=== PATIENT | female | born 1965 | race Caucasian/White ===

== ENCOUNTER 2017-03-04 17:28 | Day surgery (SDC) | payer OTHER ==
--- NOTE | 2017-03-04 18:05 | PDOC ---
Rapid Medical Evaluation Chief Complaint: Nausea/Vomiting Time Seen by Provider: 03/04/17 17:40 Medical Evaluation: Allergies Allergy/AdvReac Type Severity Reaction Status Date / Time No Known Allergies Allergy Verified 03/04/17 18:04 03/04/17 18:04 I have performed a brief in-person evaluation of this patient. The patient presents with a chief complaint of: n/v/d w/ abd pain x 2 days. No sig hx Pertinent physical exam findings:Stable w/ +ttp diffusely to abd I have ordered the following:labs The patient will proceed to the ED for further evaluation. 03/04/17 18:05
[2017-03-04 18:11] VITALS: BMI 46.5
[2017-03-04 19:04] LABS: BASO % 0.6 % (0-2.0); EOS % 3.3 % (0-4.5); HEMATOCRIT 42.7 % (32.4-45.2); HEMOGLOBIN 14.2 GM/dL (10.7-15.3); LYMPH % 36.3 % (8-40); MCH 28.4 pg (25.7-33.7); MCHC 33.2 g/dl (32.0-36.0); MEAN CELL VOLUME 85.5 fl (80-96); MEAN PLT VOLUME 8.7 fl (7.5-11.1); MONO % 4.9 % (3.8-10.2); NEUT % 54.9 % (42.8-82.8); PLATELET COUNT 232 K/MM3 (134-434); RBC 4.99 M/mm3 (3.60-5.2); RDW 13.8 % (11.6-15.6); WHITE BLOOD COUNT 10.2 K/mm3 (4.0-10.0)
--- NOTE | 2017-03-04 19:30 | PDOC ---
History of Present Illness - General Chief Complaint: Nausea/Vomiting Stated Complaint: VOMITING Time Seen by Provider: 03/04/17 17:40 History Source: Patient Exam Limitations: No Limitations - History of Present Illness Travel History: No Initial Comments: 03/04/17 19:30 51-year-old female with no medical history presents to the emergency department complaining of RLQ abdominal pains times approximately 6 hours with nausea and 2 bouts of vomiting/nonbloody, nonbilious. Patient denies fever, chills, neck pain/stiffness, back pains, chest pain, shortness of breath, flank pains, urinary symptoms: Frequency/urgency/hesitancy, hematuria. Pain is exacerbated on touch and alleviated at rest. Patient denies any other complaints. npo since 3pm Past History - Past Medical History Allergies/Adverse Reactions: Allergies Allergy/AdvReac Type Severity Reaction Status Date / Time No Known Allergies Allergy Verified 03/04/17 18:05 Home Medications: Ambulatory Orders Cholecalciferol (Vitamin D3) [Vitamin D3 -] 0 unit PO DAILY 03/04/17 Desmopressin Acetate [Ddavp -] 0 mg PO BID 03/04/17 Levothyroxine [Synthroid -] 0 mcg PO DAILY 03/04/17 Prednisone 5 mg PO DAILY 03/04/17 CVA: No COPD: No DVT: No - Immunization History Immunization Up to Date: Yes - Suicide/Smoking/Psychosocial Hx Smoking History: Never smoked Information on smoking cessation initiated: No Hx Alcohol Use: No Drug/Substance Use Hx: No Substance Use Type: None Review of Systems - Review of Systems Able to Perform ROS?: Yes Comments:: 03/04/17 22:06 CONSTITUTIONAL: Absent: fever, chills, diaphoresis, generalized weakness, malaise, loss of appetite HEENT: Absent: rhinorrhea, nasal congestion, throat pain, throat swelling, difficulty swallowing, mouth swelling, ear pain, eye pain, visual Changes CARDIOVASCULAR: Absent: chest pain, loss of consciousness, palpitations, irregular heart rate, peripheral edema RESPIRATORY: Absent: cough, shortness of breath, dyspnea with exertion, orthopnea, wheezing, stridor, hemoptysis GASTROINTESTINAL: +RLQ/RUQ pain on palp, n/vx2 Absent:abdominal distension, diarrhea, constipation, melena, hematochezia GENITOURINARY: Absent: dysuria, frequency, urgency, hesitancy, hematuria, flank pain, genital pain MUSCULOSKELETAL: Absent: myalgia, arthralgia, joint swelling SKIN: Absent: rash, itching, pallor Is the patient limited Angolan proficient: No *Physical Exam - Vital Signs Last Vital Signs Temp Pulse Resp BP Pulse Ox 98.3 F 101 H 17 98/62 100 03/04/17 18:05 03/04/17 18:05 03/04/17 18:05 03/04/17 18:05 03/04/17 18:05 - Physical Exam Comments: 03/04/17 22:07 GENERAL: Well developed, well nourished. Awake and alert. No acute distress. HEENT: Normocephalic, atraumatic. PERRLA, EOMI. No conjunctival pallor. Sclera are non- icteric. Moist mucous membranes. Oropharynx is clear. NECK: Supple. Full ROM. No JVD. Carotid pulses 2+ and symmetric, without bruits. No thyromegaly. No lymphadenopathy. CARDIOVASCULAR: Regular rate and rhythm. No murmurs, rubs, or gallops. Distal pulses are 2+ and symmetric. PULMONARY: No evidence of respiratory distress. Lungs clear to auscultation bilaterally. No wheezing, rales or rhonchi. ABDOMINAL: RLQ pain on palp +Rovsings/Mcburney's Soft. Non-distended. No rebound or guarding. No organomegaly. Normoactive bowel sounds. MUSCULOSKELETAL Normal range of motion at all joints. No bony deformities or tenderness. No CVA tenderness. EXTREMITIES: No cyanosis. No clubbing. No edema. No calf tenderness. SKIN: Warm and dry. Normal capillary refill. No rashes. No jaundice. NEUROLOGICAL: Alert, awake, appropriate. Cranial nerves 2-12 intact. No deficits to light touch and temperature in face, upper extremities and lower extremities. No motor deficits in the in face, upper extremities and lower extremities. Normoreflexic in the upper and lower extremities. Normal speech. Toes are down- going bilaterally. Gait is normal without ataxia. ED Treatment Course - LABORATORY CBC & Chemistry Diagram: 03/04/17 18:05 03/04/17 18:05 - ADDITIONAL ORDERS Additional order review: 03/04/17 18:05 RBC 4.99 MCV 85.5 MCHC 33.2 RDW 13.8 MPV 8.7 Neutrophils % 54.9 Lymphocytes % 36.3 Monocytes % 4.9 Eosinophils % 3.3 Basophils % 0.6 - RADIOLOGY Radiology Studies Ordered: Category Date Time Status ABDOMEN & PELVIS CT WITH CONTR [CT] Stat CT Scan 03/04/17 19:29 Ordered Progress Note - Progress Note Progress Note: CT abd/pelvis po/iv contrast: 1930hrs: Started Po Contrast 0050hrs: Spoke to radiologist: +AP 0051hrs: Dr. Sommers/hospitalist notified while in ER. Will [employer] for records *DC/Admit/Observation/Transfer Diagnosis at time of Disposition: Appendicitis Qualifiers: Appendicitis type: acute appendicitis Acute appendicitis type: unspecified acute appendicitis type Qualified Code(s): K35.80 - Unspecified acute appendicitis - Discharge Dispostion Disposition: HOME Condition at time of disposition: Stable Admit: Yes - Referrals - Patient Instructions - Post Discharge Activity
--- NOTE | 2017-03-04 19:43 | PDOC ---
*Physical Exam - Vital Signs Last Vital Signs Temp Pulse Resp BP Pulse Ox 98.3 F 101 H 17 98/62 100 03/04/17 18:05 03/04/17 18:05 03/04/17 18:05 03/04/17 18:05 03/04/17 18:05 ED Treatment Course - LABORATORY CBC & Chemistry Diagram: 03/05/17 06:24 03/04/17 18:05 - ADDITIONAL ORDERS Additional order review: 03/04/17 18:05 RBC 4.99 MCV 85.5 MCHC 33.2 RDW 13.8 MPV 8.7 Neutrophils % 54.9 Lymphocytes % 36.3 Monocytes % 4.9 Eosinophils % 3.3 Basophils % 0.6 Medical Decision Making - Medical Decision Making 03/04/17 19:43 agree with care from HELIO Naranjo *DC/Admit/Observation/Transfer Diagnosis at time of Disposition: Appendicitis - Discharge Dispostion Disposition: HOME - Referrals - Patient Instructions - Post Discharge Activity
[2017-03-04 19:50] LABS: ALBUMIN 3.3 g/dl (3.4-5.0); ANION GAP 13 (8-16); BLOOD UREA NITROGEN 13 mg/dL (7-18); CALCIUM 8.5 mg/dL (8.5-10.1); CHLORIDE 103 mmol/L (98-107); CO2 23 mmol/L (21-32); GLUCOSE,RANDOM 93 mg/dL (74-106); LIPASE 110 U/L (73-393); POTASSIUM 3.4 mmol/L (3.5-5.1); SGOT/AST 33 U/L (15-37); SGPT/ALT 47 U/L (12-78); SODIUM 139 mmol/L (136-145)
[2017-03-04 19:51] LABS: ALK PHOS 106 U/L (45-117); TOT PROT 7.2 g/dl (6.4-8.2)
[2017-03-04 20:08] LABS: URINE APPEARANCE SLCLOUDY; URINE BILIRUBIN NEGATIVE (NEGATIVE); URINE BLOOD 2+ (NEGATIVE); URINE COLOR YELLOW; URINE GLUCOSE (UA) NEGATIVE (NEGATIVE); URINE KETONE TRACE (NEGATIVE); URINE NITRITE NEGATIVE (NEGATIVE); URINE PROTEIN NEGATIVE (NEGATIVE); URINE UROBILINOGEN NEGATIVE mg/dL (0.2-1.0)
[2017-03-04 21:45] LABS: URINE LEUK ESTERASE 2+ (NEGATIVE)
[2017-03-04 22:04] LABS: EPI CELLS RARE /HPF (FEW); URINE MUCUS RARE
[2017-03-05] MEDS ORDERED: PIPERACILLIN/TAZOB 4.5 GM/100 ML PRE-DOCKED IVPB ONE (00:53)
[2017-03-05] MEDS ORDERED: POTASSIUM CHLORIDE TABS 20 MEQ TABLET.ER (FP) PO ONE ×2 (00:55→01:14)
--- NOTE | 2017-03-05 01:12 | PN ---
Teaching Attending Note Name of Resident: Angel Luis Haynes ATTENDING PHYSICIAN STATEMENT I saw and evaluated the patient. I reviewed the resident's note and discussed the case with the resident. I agree with the resident's findings and plan as documented. 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 Pt. States she doesnt remember her meds/doses, but does know she's on some horomone replacement. No Chest pain or pressure. Notes vomiting has resolved. No fevers or chills. OBJECTIVE: Physical: VS: Vital Signs Period Temp Pulse Resp BP Sys/Antoine Pulse Ox Last 24 Hr 98.3 F 101-101 16-17 98-103/62-68 98-100 GEN: NAD, Resting in bed, Able to speak full sentences HEENT: NCAT, PERRL, Throat without erythema or exudates CARD: RRR S1, S2 RESP: CTAB ABD: BSx4, TTP RLQ EXT: - C/C/E CBCD WBC 10.2 K/mm3 (4.0-10.0) H 03/04/17 18:05 RBC 4.99 M/mm3 (3.60-5.2) 03/04/17 18:05 Hgb 14.2 GM/dL (10.7-15.3) 03/04/17 18:05 Hct 42.7 % (32.4-45.2) 03/04/17 18:05 MCV 85.5 fl (80-96) 03/04/17 18:05 MCHC 33.2 g/dl (32.0-36.0) 03/04/17 18:05 RDW 13.8 % (11.6-15.6) 03/04/17 18:05 Plt Count 232 K/MM3 (134-434) 03/04/17 18:05 MPV 8.7 fl (7.5-11.1) 03/04/17 18:05 CMP Sodium 139 mmol/L (136-145) 03/04/17 18:05 Potassium 3.4 mmol/L (3.5-5.1) L 03/04/17 18:05 Chloride 103 mmol/L (98-107) 03/04/17 18:05 Carbon Dioxide 23 mmol/L (21-32) 03/04/17 18:05 Anion Gap 13 (8-16) 03/04/17 18:05 BUN 13 mg/dL (7-18) 03/04/17 18:05 Creatinine 1.0 mg/dL (0.55-1.02) 03/04/17 18:05 Creat Clearance w eGFR 58.69 (>60) 03/04/17 18:05 Random Glucose 93 mg/dL (74-106) 03/04/17 18:05 Calcium 8.5 mg/dL (8.5-10.1) 03/04/17 18:05 Total Bilirubin 1.0 mg/dL (0.2-1.0) 03/04/17 18:05 AST 33 U/L (15-37) 03/04/17 18:05 ALT 47 U/L (12-78) 03/04/17 18:05 Alkaline Phosphatase 106 U/L (45-117) 03/04/17 18:05 Total Protein 7.2 g/dl (6.4-8.2) 03/04/17 18:05 Albumin 3.3 g/dl (3.4-5.0) L 03/04/17 18:05 Urine Test Results Urine Color Yellow 03/04/17 19:40 Urine Appearance Slcloudy 03/04/17 19:40 Urine pH 6.0 (5.0-8.0) 03/04/17 19:40 Ur Specific Turner 1.010 (1.001-1.035) 03/04/17 19:40 Urine Protein Negative (NEGATIVE) 03/04/17 19:40 Urine Glucose (UA) Negative (NEGATIVE) 03/04/17 19:40 Urine Ketones Trace (NEGATIVE) H 03/04/17 19:40 Urine Blood 2+ (NEGATIVE) H 03/04/17 19:40 Urine Nitrite Negative (NEGATIVE) 03/04/17 19:40 Urine Bilirubin Negative (NEGATIVE) 03/04/17 19:40 Ur Leukocyte Esterase 1+ (NEGATIVE) H 03/04/17 19:40 Ur Epithelial Cells Rare /HPF (FEW) 03/04/17 19:40 Urine Mucus Rare 03/04/17 19:40 EKG: Pending CXR- Pending CT Abdomen- Acute Appendicitis ASSESSMENT AND PLAN: 51 yo F with pmhx of "brain tumor" 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 adenoma) who presents, today with nausea and vomiting, found to have a acute appendicitis 1.) Acute Appendicitis - NPO - IVF - Coags - Type & Screen - Cx - Sx. Consulted 2.) ? Pit. Adenoma - Pt. does NOT know doses - Need Pharmacy in morning to confirm - Needs Synthriod, DDAVP, Prednisone Equiv, ?Bromocriptine (as per pt) - will bring meds in Am 3.) Dvt Ppx - SCDS Place in Med-Sx
[2017-03-05] MEDS ORDERED: PIPERACILLIN/TAZOB 4.5 GM 4.5 GM/100 ML BAG IVPB ONE (01:14)
--- NOTE | 2017-03-05 01:25 | HP ---
CHIEF COMPLAINT:3 days of N/V/D , abdominal discomfort PCP:does not have one HISTORY OF PRESENT ILLNESS: 51 y/o F with PMHx pituitary adenoma tumor removal presented to ER with 3 days onset of n/v/d and abdominal discomfort. Pt states she vomited three times, nonbilious, nonbloody, reported as "yellow". Pt also reports nonbloody "brown" watery diarrhea x 5 times a day for last 3 days. She states she feels nauseous now and abdominal discomfort is reported as 6/10. She feels bloated now and decreased appetite for last 3 days. She denied taking any medication for her abdominal discomfort. She reports chills; denies fever, chest pain, palpitations , SOB, sore throat, urinary changes. She states she has gained approximately 30 lb in the last year following her pituitary surgery. She denies sick contacts and recent travel. Need to confirm medications stat in AM with pharmacy given hx of pituitary adenoma removal; will also bring meds in AM. ER course was notable for: (1)CT (2)IV fluids (3)CBC, CMP (4) CXR, EKG (5) 1 dose Zosyn 4.5 gm Recent Travel: denies PAST MEDICAL HISTORY: Pituitary tumor PAST SURGICAL HISTORY: Pitutiary surgery, tubal ligation Social History: Smoking:denies Alcohol:denies Drugs: denies Family History:non contributory Allergies No Known Allergies Allergy (Verified 03/04/17 18:05) HOME MEDICATIONS: Home Medications Medication Instructions Recorded Cholecalciferol (Vitamin D3) 0 unit PO DAILY 03/04/17 [Vitamin D3 -] Desmopressin Acetate [Ddavp -] 0 mg PO BID 03/04/17 Levothyroxine [Synthroid -] 0 mcg PO DAILY 03/04/17 Prednisone 5 mg PO DAILY 03/04/17 REVIEW OF SYSTEMS CONSTITUTIONAL: Absent: fever, chills, diaphoresis, generalized weakness, malaise, loss of appetite, weight change HEENT: Absent: rhinorrhea, nasal congestion, throat pain, throat swelling, difficulty swallowing, mouth swelling, ear pain, eye pain, visual changes CARDIOVASCULAR: Absent: chest pain, syncope, palpitations, irregular heart rate, lightheadedness , peripheral edema RESPIRATORY: Absent: cough, shortness of breath, dyspnea with exertion, orthopnea, wheezing, stridor, hemoptysis GASTROINTESTINAL: Absent: abdominal pain, abdominal distension, nausea, vomiting, diarrhea, constipation, melena, hematochezia GENITOURINARY: Absent: dysuria, frequency, urgency, hesitancy, hematuria, flank pain, genital pain MUSCULOSKELETAL: Absent: myalgia, arthralgia, joint swelling, back pain, neck pain SKIN: Absent: rash, itching, pallor HEMATOLOGIC/IMMUNOLOGIC: Absent: easy bleeding, easy bruising, lymphadenopathy, frequent infections ENDOCRINE: Absent: unexplained weight gain, unexplained weight loss, heat intolerance, cold intolerance NEUROLOGIC: Absent: headache, focal weakness or paresthesias, dizziness, unsteady gait, seizure, mental status changes, bladder or bowel incontinence PSYCHIATRIC: Absent: anxiety, depression, suicidal or homicidal ideation, hallucinations. PHYSICAL EXAMINATION Vital Signs - 24 hr 03/04/17 03/04/17 18:05 22:37 Temperature 98.3 F Pulse Rate 101 H Pulse Rate [ 101 H Apical] Respiratory 17 16 Rate Blood Pressure 98/62 Blood Pressure 103/68 [Left Arm] O2 Sat by Pulse 100 98 Oximetry (%) GENERAL: Awake, alert, and fully oriented, in no acute distress. HEAD: Normal with no signs of trauma. EYES: extraocular movements intact, sclera anicteric, conjunctiva clear. EARS, NOSE, THROAT: Ears normal, nares patent, oropharynx clear without exudates. Moist mucous membranes. NECK: supple without JVD, LUNGS: Breath sounds equal, clear to auscultation bilaterally. No wheezes, and no crackles. No accessory muscle use. HEART: Regular rate and rhythm, normal S1 and S2 without murmur, rub or gallop. ABDOMEN: Soft, RUQ, RLQ tenderness, mild distended, normoactive bowel sounds, no guarding, no rebound, +mcburney sign, + obturator sign, - Psoas sign LOWER EXTREMITIES: 2+ pulses, warm, well-perfused. No calf tenderness. No peripheral edema. NEUROLOGICAL: no focal deficit . Normal speech. PSYCHIATRIC: Cooperative. Good eye contact. Appropriate mood and affect. SKIN: Warm, dry, no rashes or lesions noted, Laboratory Results - last 24 hr 03/04/17 03/04/17 03/04/17 18:05 18:05 19:40 WBC 10.2 H RBC 4.99 Hgb 14.2 Hct 42.7 MCV 85.5 MCH 28.4 MCHC 33.2 RDW 13.8 Plt Count 232 MPV 8.7 Neutrophils % 54.9 Lymphocytes % 36.3 Monocytes % 4.9 Eosinophils % 3.3 Basophils % 0.6 Sodium 139 Potassium 3.4 L Chloride 103 Carbon Dioxide 23 Anion Gap 13 BUN 13 Creatinine 1.0 Creat Clearance w eGFR 58.69 Random Glucose 93 Calcium 8.5 Total Bilirubin 1.0 AST 33 ALT 47 Alkaline Phosphatase 106 Total Protein 7.2 Albumin 3.3 L Lipase 110 Urine Color Yellow Urine Appearance Slcloudy Urine pH 6.0 Ur Specific Vista 1.010 Urine Protein Negative Urine Glucose (UA) Negative Urine Ketones Trace H Urine Blood 2+ H Urine Nitrite Negative Urine Bilirubin Negative Urine Urobilinogen Negative Ur Leukocyte Esterase 1+ H Urine WBC (Auto) 12 Urine RBC (Auto) 3 Ur Epithelial Cells Rare Urine Mucus Rare CBC, BMP 03/04/17 18:05 03/04/17 18:05 CT : pending results CXR : pending results EKG: pending results Active Medications Generic Name Dose Route Start Last Admin Trade Name Freq PRN Reason Stop Dose Admin Desmopressin Acetate 0.1 mg 03/05/17 10:00 Ddavp - PO BID CHELA Sodium Chloride 1,000 mls @ 100 mls/hr 03/05/17 02:15 Normal Saline - IV ASDIR CHELA Morphine Sulfate 2 mg 03/05/17 02:03 Morphine Injection - IVPUSH Q4H PRN PAIN Prednisone 5 mg 03/05/17 10:00 Deltasone - PO DAILY [facility] ASSESSMENT/PLAN: 51 year old female with PMH xof Pitutary surgery who presented to Ed with 3 days history of N/V, diarrhea and abdominal discofort, was found to have appendicitis and was admitted for treatment # Acute Appendicitis * NPO * IV fluids NS @100 CC/hr * ABX zosyn 4.5 g IV X1 * Consult surgery * Type and screen * PT, INR, PTT * LA * Low to moderate risk for surgery * CXR * EKG # Hypokalemia * Monitor * repeat lab in AM # FEN * F: NS @ 100 CC /Hr * E: Hypokalemia , monitor * N: NPO for now , possible surgery in AM # Proph * DVT: SCDs Both legs # Dispo * Admit to med -surg * Low to moderate risk for surgery * * Note Please confirm her home meds stat in AM due to previous pituitary surgery Visit type - Emergency Visit Emergency Visit: Yes Care time: The patient presented to the Emergency Department on the above date and was hospitalized for further evaluation of their emergent condition. - New Patient This patient is new to me today: No - Critical Care Critical Care patient: No
[2017-03-05] MEDS ORDERED: morphine CARPU-JECT 2 MG/1 ML DISP.SYRIN IVPUSH PRN (02:03)
[2017-03-05] MEDS ORDERED: SODIUM CHLORIDE 1,000 ML IV SCH ×3 (02:15→13:57)
[2017-03-05 08:04] LABS: BASO % 1.3 % (0-2.0); EOS % 6.2 % (0-4.5); HEMATOCRIT 41.2 % (32.4-45.2); HEMOGLOBIN 13.5 GM/dL (10.7-15.3); LYMPH % 36.7 % (8-40); MCH 28.1 pg (25.7-33.7); MCHC 32.8 g/dl (32.0-36.0); MEAN CELL VOLUME 85.8 fl (80-96); MEAN PLT VOLUME 8.7 fl (7.5-11.1); MONO % 5.3 % (3.8-10.2); NEUT % 50.5 % (42.8-82.8); PLATELET COUNT 210 K/MM3 (134-434); RDW 13.8 % (11.6-15.6)
--- NOTE | 2017-03-05 08:25 | PN ---
Physical Exam: SUBJECTIVE: Abdominal pain currently controlled on pain medication. Nausea controlled with Zofran. No vomiting overnight. Pt to go for surgery today for planned laparoscopic appendectomy. OBJECTIVE: Vital Signs Period Temp Pulse Resp BP Sys/Antoine Pulse Ox Last 24 Hr 97.9 F-98.3 F 92-101 16-18 98-108/58-70 98-100 GENERAL: NAD, awake, alert, and fully oriented, in no acute distress. HEENT: NC/AT, sclera anicteric, no JVD, EOMI, GATO LUNGS: CTA bilaterally, no wheezes, rhonchi, rales. No accessory muscle use. HEART: RRR, S1, S2 without murmur ABDOMEN: Soft, nondistended, normoactive BS, tenderness to palpation in RLQ, Rosving's +, obturator +, psoas -, no hepatomegaly. EXTREMITIES: 2+ DP pulses, warm, well-perfused, no edema. NEUROLOGICAL: Cranial nerves II through XII grossly intact. Normal speech, gait not observed. PSYCH: Normal mood, normal affect. SKIN: Warm, dry, no rashes or lesions noted Laboratory Results - last 24 hr 03/04/17 03/04/17 03/04/17 18:05 18:05 19:40 WBC 10.2 H RBC 4.99 Hgb 14.2 Hct 42.7 MCV 85.5 MCH 28.4 MCHC 33.2 RDW 13.8 Plt Count 232 MPV 8.7 Neutrophils % 54.9 Lymphocytes % 36.3 Monocytes % 4.9 Eosinophils % 3.3 Basophils % 0.6 PT with INR INR PTT (Actin FS) Sodium 139 Potassium 3.4 L Chloride 103 Carbon Dioxide 23 Anion Gap 13 BUN 13 Creatinine 1.0 Creat Clearance w eGFR 58.69 Random Glucose 93 Lactic Acid Calcium 8.5 Total Bilirubin 1.0 AST 33 ALT 47 Alkaline Phosphatase 106 Total Protein 7.2 Albumin 3.3 L Lipase 110 Urine Color Yellow Urine Appearance Slcloudy Urine pH 6.0 Ur Specific Frederica 1.010 Urine Protein Negative Urine Glucose (UA) Negative Urine Ketones Trace H Urine Blood 2+ H Urine Nitrite Negative Urine Bilirubin Negative Urine Urobilinogen Negative Ur Leukocyte Esterase 1+ H Urine WBC (Auto) 12 Urine RBC (Auto) 3 Ur Epithelial Cells Rare Urine Mucus Rare Blood Type Antibody Screen 03/05/17 03/05/1717 03:17 03:17 03:17 WBC RBC Hgb Hct MCV MCH MCHC RDW Plt Count MPV Neutrophils % Lymphocytes % Monocytes % Eosinophils % Basophils % PT with INR Cancelled INR Cancelled PTT (Actin FS) Cancelled Sodium Potassium Chloride Carbon Dioxide Anion Gap BUN Creatinine Creat Clearance w eGFR Random Glucose Lactic Acid 1.5 Calcium Total Bilirubin AST ALT Alkaline Phosphatase Total Protein Albumin Lipase Urine Color Urine Appearance Urine pH Ur Specific Frederica Urine Protein Urine Glucose (UA) Urine Ketones Urine Blood Urine Nitrite Urine Bilirubin Urine Urobilinogen Ur Leukocyte Esterase Urine WBC (Auto) Urine RBC (Auto) Ur Epithelial Cells Urine Mucus Blood Type Antibody Screen 03/05/17 03/05/17 03:17 06:24 WBC 8.0 RBC 4.80 Hgb 13.5 Hct 41.2 MCV 85.8 MCH 28.1 MCHC 32.8 RDW 13.8 Plt Count 210 MPV 8.7 Neutrophils % 50.5 Lymphocytes % 36.7 Monocytes % 5.3 Eosinophils % 6.2 H D Basophils % 1.3 PT with INR INR PTT (Actin FS) Sodium Potassium Chloride Carbon Dioxide Anion Gap BUN Creatinine Creat Clearance w eGFR Random Glucose Lactic Acid Calcium Total Bilirubin AST ALT Alkaline Phosphatase Total Protein Albumin Lipase Urine Color Urine Appearance Urine pH Ur Specific Frederica Urine Protein Urine Glucose (UA) Urine Ketones Urine Blood Urine Nitrite Urine Bilirubin Urine Urobilinogen Ur Leukocyte Esterase Urine WBC (Auto) Urine RBC (Auto) Ur Epithelial Cells Urine Mucus Blood Type O POSITIVE Antibody Screen Negative Active Medications Generic Name Dose Route Start Last Admin Trade Name Freq PRN Reason Stop Dose Admin Desmopressin Acetate 0.1 mg 03/05/17 10:00 Ddavp - PO BID CHELA Sodium Chloride 1,000 mls @ 150 mls/hr 03/05/17 07:57 Normal Saline - IV ASDIR CHELA Morphine Sulfate 2 mg 03/05/17 02:03 Morphine Injection - IVPUSH Q4H PRN PAIN Prednisone 5 mg 03/05/17 10:00 Deltasone - PO DAILY CHELA ASSESSMENT/PLAN: 51F with history of pituitary adenoma s/p resection on maintenance therapy who prsented to ED with abdominal pain, nausea, and NB/NB vomiting who was found to have appendicits confirmed via CT. 1) Acute appendicitis --For surgery today - Lap appendectomy; low risk patient for moderate risk procedure --NPO --Pain control --Zofran 4 PRN for nausea 2) S/P pituitary adenoma resection --DDAVP 0.1mg --Prednisone 5mg daily --Consult endocrinology FEN: Fluids: NS @ 150cc/hr Electrolyte abnormalities: None currently Nutrition: NPO PPX DVT - SCDs (no pharmcological agents due to surgery) Dispo: for surgery; dispo pending surg procedure Case discussed with Dr. Lucille Diaz, DO - Internal Medicine PGY-1 Visit type - Emergency Visit Emergency Visit: No - New Patient This patient is new to me today: Yes Date on this admission: 03/05/17 - Critical Care Critical Care patient: No
--- NOTE | 2017-03-05 09:11 | CONSULT ---
- Consultation REQUESTING PROVIDER: Lucille TAVAREZ CONSULT REQUEST: We have been asked to surgically evaluate this patient for abdominal pain PCP:Pili Adkins HISTORY OF PRESENT ILLNESS:CTSP patient who is a 51 y/o/ female who presented w/ n/v/abdominal pain firts generalized now localized to the RLQ; pain is sharp and unrelenting and w/o radiation; worse w/moving around; less by lying still; some nausea and no vomiting; pain started ~ 24 hours ago; no GI// CHIEF OF SURGERY c/o o/w. PMHx: thyroid disease ; lung disease PSHx: craniotomy; C-S Home Medications Medication Instructions Recorded Cholecalciferol (Vitamin D3) 0 unit PO DAILY 03/04/17 [Vitamin D3 -] Desmopressin Acetate [Ddavp -] 0.1 mg PO BID 03/04/17 Levothyroxine [Synthroid -] 0 mcg PO DAILY 03/04/17 Prednisone 5 mg PO DAILY 03/04/17 Allergies Allergy/AdvReac Type Severity Reaction Status Date / Time No Known Allergies Allergy Verified 03/04/17 18:05 PHYSICAL EXAM: GENERAL: Awake, alert, and fully oriented, in no acute distress. HEAD: Normal with no signs of trauma. EYES: sclera anicteric, conjunctiva clear. NECK: Normal ROM, supple without lymphadenopathy, JVD, or masses. ABDOMEN: Soft, tender RLQ, not distended, normoactive bowel sounds, voluntary guarding, positive rebound RLQ, no masses. No organomegaly. No hernias; Rovsings; psoas and obturator signs are present. MUSCULOSKELETAL: Normal ROM at all joints. No bony deformities or tenderness. No CVA tenderness. UPPER EXTREMITIES: 2+ pulses, warm, well-perfused. No cyanosis. Cap refill <2 seconds. No peripheral edema. LOWER EXTREMITIES: 2+ pulses, warm, well-perfused. No calf tenderness. No peripheral edema. NEUROLOGICAL: Normal speech, gait not observed. PSYCH: Cooperative. Good eye contact. Appropriate mood and affect. SKIN: Warm, dry, normal turgor, no rashes or lesions noted. Vital Signs Temperature 97.9 F 03/05/17 03:55 Pulse Rate 92 H 03/05/17 03:55 Respiratory Rate 18 03/05/17 03:55 Blood Pressure 98/58 03/05/17 03:55 O2 Sat by Pulse Oximetry (%) 100 03/05/17 03:55 Lab Results WBC 8.0 K/mm3 (4.0-10.0) 03/05/17 06:24 RBC 4.80 M/mm3 (3.60-5.2) 03/05/17 06:24 Hgb 13.5 GM/dL (10.7-15.3) 03/05/17 06:24 Hct 41.2 % (32.4-45.2) 03/05/17 06:24 MCV 85.8 fl (80-96) 03/05/17 06:24 MCHC 32.8 g/dl (32.0-36.0) 03/05/17 06:24 RDW 13.8 % (11.6-15.6) 03/05/17 06:24 Plt Count 210 K/MM3 (134-434) 03/05/17 06:24 Sodium 139 mmol/L (136-145) 03/04/17 18:05 Potassium 3.4 mmol/L (3.5-5.1) L 03/04/17 18:05 Chloride 103 mmol/L (98-107) 03/04/17 18:05 Carbon Dioxide 23 mmol/L (21-32) 03/04/17 18:05 Anion Gap 13 (8-16) 03/04/17 18:05 BUN 13 mg/dL (7-18) 03/04/17 18:05 Creatinine 1.0 mg/dL (0.55-1.02) 03/04/17 18:05 Random Glucose 93 mg/dL (74-106) 03/04/17 18:05 Calcium 8.5 mg/dL (8.5-10.1) 03/04/17 18:05 Blood Type O POSITIVE 03/05/17 06:24 Antibody Screen Negative 03/05/17 03:17 INR Cancelled 03/05/17 03:17 CT a/p images and reports reviewed IMP: acute appendicitis PLAN: lap appendectomy; possible open; r/b/t/a's; informed consent obtained in [place] and d/w her in [place] as well. Alfonzo Venegas MD FACS Visit type - Case Type Case Type: ED Admission - Emergency Emergency Visit: Yes ED Registration Date: 03/05/17 Care time: The patient presented to the Emergency Department on the above date and was hospitalized for further evaluation of their emergent condition. - New patient This patient is new to me today: Yes Date on this admission: 03/05/17
[2017-03-05] MEDS ORDERED: predniSONE 5 MG TABLET (UD) PO SCH (10:00)
[2017-03-05] MEDS ORDERED: DESMOPRESSIN ACETATE 0.1 MG TABLET PO SCH (10:00)
[2017-03-05] MEDS ORDERED: cefOXitin SODIUM 2 GM VIAL (RESTRICTED TO ID) IVPB ONE (11:08)
[2017-03-05] MEDS ORDERED: PROPOFOL 20 ML ONE (11:24)
[2017-03-05] MEDS ORDERED: ROCURONIUM BROMIDE 50 MG/5 ML VIAL ONE (11:26)
[2017-03-05] MEDS ORDERED: ceFAZolin SODIUM 1 GM VIAL IVPB ONE (11:30)
[2017-03-05] MEDS ORDERED: LIDOCAINE HCL/PF 2% SDV 5ML VIAL ONE (11:40)
[2017-03-05] MEDS ORDERED: HYDROCORTISONE SOD SUCCINATE 2 ML ONE (11:40)
[2017-03-05] MEDS ORDERED: PHENYLEPHRINE HCL 10 MG/1 ML SINGLE DOSE VIAL ONE (11:40)
[2017-03-05] MEDS ORDERED: DEXAMETHASONE SOD PHOSPHATE 4 MG/1 ML VIAL ONE (11:40)
[2017-03-05] MEDS ORDERED: ceFAZolin SODIUM 1 GM VIAL ONE (11:40)
[2017-03-05] MEDS ORDERED: NEOSTIGMINE METHYLSULFATE 0.5 MG/ML - 10 ML MDV ONE (12:10)
[2017-03-05] MEDS ORDERED: KETOROLAC TROMETHAMINE 30 MG/1 ML VIAL ONE (12:11)
[2017-03-05] MEDS ORDERED: GLYCOPYRROLATE 0.2 MG/1 ML VIAL ONE (12:11)
[2017-03-05] MEDS ORDERED: CEFOXITIN SODIUM 2 GM in DEXTROSE 5%-WATER - 100 ML IVPB ONE (12:30)
--- NOTE | 2017-03-05 13:01 | EKG ---
Test Reason : Blood Pressure : / mmHG Vent. Rate : 099 BPM Atrial Rate : 099 BPM P-R Int : 144 ms QRS Dur : 076 ms QT Int : 336 ms P-R-T Axes : 016 012 -30 degrees QTc Int : 431 ms NORMAL SINUS RHYTHM NONSPECIFIC T WAVE ABNORMALITY ABNORMAL ECG NO PREVIOUS ECGS AVAILABLE Confirmed by AMBER TAVAREZ, SANG ([id number]) on 03/05/2017 1:01:21 PM Referred By: Confirmed By:SANG CLARK MD
--- NOTE | 2017-03-05 13:18 | OP ---
Operative Note - Note: Operative Date: 03/05/17 Pre-Operative Diagnosis: acute appendicitis Operation: laparoscopic appendectomy Post-Operative Diagnosis: Same as Pre-op Surgeon: Alfonzo Venegas Bead Picker: Shweta Moss Anesthesiologist/JOURNEYMAN MILLWRIGHT: Amy Chicas Anesthesia: General Specimens Removed: appendix Estimated Blood Loss (mls): 10 Fluid Volume Replaced (mls): 1,100 Operative Report Dictated: Yes
--- NOTE | 2017-03-05 13:20 | SURG ---
Surgery Setter Machine Note Setter Machine: Shweta Moss PA-C Date of Service: 03/05/17 Diagnosis: acute appendicitis Procedure: laparoscopic appendectomy I was present for the entirety of the operative procedure. For further detail, please refer to operative report. Visit type - Case Type Case Type: ED Admission - Emergency Emergency Visit: Yes ED Registration Date: 03/05/17 Care time: The patient presented to the Emergency Department on the above date and was hospitalized for further evaluation of their emergent condition. - New patient This patient is new to me today: Yes Date on this admission: 03/05/17
[2017-03-05] MEDS ORDERED: oxyCODONE HCL 5 MG TABLET PO PRN ×2 (13:25→13:26)
[2017-03-05] MEDS ORDERED: ACETAMINOPHEN 325 MG TABLET (FP) PO PRN (13:27)
[2017-03-05] MEDS ORDERED: ONDANSETRON 4 MG/2 ML VIAL IVPUSH PRN (13:28)
[2017-03-05] MEDS ORDERED: PROMETHAZINE HCL 25 MG/1 ML VIAL IVPUSH PRN (13:28)
[2017-03-05] MEDS ORDERED: LACTATED RINGERS SOLUTION 1,000 ML IV SCH (13:30)
[2017-03-05] MEDS ORDERED: morphine CARPU-JECT 10 MG/1 ML DISP.SYRIN IVPUSH PRN (13:57)
[2017-03-05] MEDS ORDERED: LEVOTHYROXINE NA 75 MCG TABLET (FP) PO SCH (15:00)
--- NOTE | 2017-03-05 15:39 | CONSULT ---
Consult Consult Specialty:: Endocrinology Referred by:: Dr Sommers Reason for Consultation:: Hypopituiratism - History of Present Illness Chief Complaint: Abd pain History of Present Illness: This is a 51 y/o F with h/o pituitary adenoma s/p resection of tumor around 6 years ago who presented to ER with 3 days onset of n/v/d and abdominal discomfort. Pt states she vomited three times, nonbilious, nonbloody, reported as "yellow". Pt found to have acute appendicitis and underwent laparoscopic appendectomy today. Pt gives h/o visual symptoms which led to diagnosis of pituitary adenoma and surgery about 6 years ago. Pt developed polyuria s/p pituitary surgery which was treated with Desmopressin with releif of symptoms. Pt says she has not been taking the Cabergoline regularly as prescribed. Currently no visual symptoms, no Galactorrhoea or visual symptoms. Goes to [facility] every 3 months for f/u. Last MRI done in August and is scheduled get it repeated in March. - History Source History Provided By: Patient, Family Member, Medical Record - Past Medical History ...LMP Comment: LMP 6 year ago Endocrine: Yes: Diabetes Insipidus (postoperative), Hypothyroidism ([facility]) - Alcohol/Substance Use Hx Alcohol Use: No - Smoking History Smoking history: Never smoked Home Medications - Allergies Allergies/Adverse Reactions: Allergies Allergy/AdvReac Type Severity Reaction Status Date / Time No Known Allergies Allergy Verified 03/04/17 18:05 - Home Medications Home Medications: Ambulatory Orders Cholecalciferol (Vitamin D3) [Vitamin D3 -] 0 unit PO DAILY 03/04/17 Desmopressin Acetate [Ddavp -] 0.1 mg PO BID 03/04/17 Levothyroxine [Synthroid -] 0 mcg PO DAILY 03/04/17 Prednisone 5 mg PO DAILY 03/04/17 Review of Systems - Review of Systems Constitutional: reports: No Symptoms Eyes: reports: No Symptoms HENT: reports: No Symptoms Neck: reports: No Symptoms Cardiovascular: reports: No Symptoms Respiratory: reports: No Symptoms Gastrointestinal: reports: Abdominal Pain Genitourinary: reports: No Symptoms Breasts: reports: No Symptoms Reported Musculoskeletal: reports: No Symptoms Neurological: reports: No Symptoms Endocrine: reports: No Symptoms Physical Exam Vital Signs: Vital Signs Temperature 98.2 F 03/05/17 15:05 Pulse Rate 98 H 03/05/17 15:05 Respiratory Rate 18 03/05/17 15:05 Blood Pressure 110/57 03/05/17 15:05 O2 Sat by Pulse Oximetry (%) 98 03/05/17 15:05 Constitutional: Yes: No Distress, Calm Eyes: Yes: Conjunctiva Clear, EOM Intact HENT: Yes: Atraumatic, Normocephalic Neck: Yes: Supple, Trachea Midline Cardiovascular: Yes: Regular Rate and Rhythm Respiratory: Yes: Regular, CTA Bilaterally Gastrointestinal: Yes: Soft Musculoskeletal: Yes: WNL Edema: No Neurological: Yes: Alert, Oriented Labs: CBC, BMP 03/05/17 06:24 03/04/17 18:05 Imaging - Results Cat Scan: Report Reviewed Problem List - Problems (1) Appendicitis Code(s): K37 - UNSPECIFIED APPENDICITIS Qualifiers: Appendicitis type: acute appendicitis Acute appendicitis type: unspecified acute appendicitis type Qualified Code(s): K35.80 - Unspecified acute appendicitis Assessment/Plan AP: Appendicitis s/p Appendectomy Panhypopituitarism: Diabetes Insipidus Central Hypothyroidism ?Hyperprolactinemia Hyrocortisone 25mg IVPB Q 8 hrs for 24 hrs then switch to Prednisone 5mg Daily LT4 75 mcg QD Cabergoline 0.5mg half tab twice a week Desmopressin 0.1mg BID, First dose stat as she didn't take it since last night. Monitor electrolytes closely as pt on Desmopressin CMP in PM FT4, Prolactin in a.m. Will f/u
[2017-03-05] MEDS: HEPARIN NA (PORCINE) 5,000 UNITS/ML 1ML VIAL SQ SCH ×2 (15:52→21:34)
[2017-03-05] MEDS ORDERED: DESMOPRESSIN ACETATE 0.2 MG TABLET PO ONE (16:15)
[2017-03-05] MEDS: SODIUM CHLORIDE 1,000 ML IV SCH (17:22)
--- NOTE | 2017-03-05 17:31 | PN ---
Teaching Attending Note Name of Resident: Chuck Diaz ATTENDING PHYSICIAN STATEMENT I saw and evaluated the patient. I reviewed the resident's note and discussed the case with the resident. I agree with the resident's findings and plan as documented. SUBJECTIVE:states some mild abdominal pain but improved. hungry and requesting food. deneis Cp, SOB, fever, chills, N/V/C/D. no flatus or bleching since surgery OBJECTIVE: Last Vital Signs Temp Pulse Resp BP Pulse Ox 98.2 F 98 H 18 110/57 98 03/05/17 15:05 03/05/17 15:05 03/05/17 15:05 03/05/17 15:05 03/05/17 15:05 General NAD CV S1 S2 RRR no murmur/rub/gallop Lungs CTA anteriorly Abdomen soft slightly distended/tender. surgical incisions with good approximation and dry. no oozing. Extremities no pedal edema ASSESSMENT AND PLAN: 51yo M with PMH Panhypopituitarism presented to the ER with abdominal pain and vomiting 1. Acute appendicitis- s/p laprascopic appendectomy today. diet advance to clears. pain and nausea control. surgery on board 2. Panhypopituitarism- placed on stress steroids by endocrine. on hydrocortisone. on desmopressin and cabergoline and LT4. endocrine following 3. d/c planning for the AM
[2017-03-05] MEDS ORDERED: HYDROCORTISONE SOD SUCCINATE 100 MG/2 ML VIAL IVPB ONE (18:00)
[2017-03-05 19:38] LABS: ALBUMIN 3.2 g/dl (3.4-5.0); ANION GAP 7 (8-16); BLOOD UREA NITROGEN 7 mg/dL (7-18); CALCIUM 8.9 mg/dL (8.5-10.1); CHLORIDE 118 mmol/L (98-107); CO2 24 mmol/L (21-32); CREATININE 0.8 mg/dL (0.55-1.02); GLUCOSE,RANDOM 111 mg/dL (74-106); POTASSIUM 4.6 mmol/L (3.5-5.1); SGOT/AST 25 U/L (15-37); SGPT/ALT 42 U/L (12-78); SODIUM 149 mmol/L (136-145)
[2017-03-05 19:41] LABS: ALK PHOS 103 U/L (45-117); BILIRUBIN,TOTAL 0.5 mg/dL (0.2-1.0); TOT PROT 7.3 g/dl (6.4-8.2)
[2017-03-05] MEDS: DESMOPRESSIN ACETATE 0.2 MG TABLET PO SCH (21:32)
[2017-03-05] MEDS: HYDROCORTISONE SOD SUCCINATE 100 MG/2 ML VIAL IVPB SCH (21:33)
[2017-03-06] MEDS: SODIUM CHLORIDE 1,000 ML IV SCH (02:58)
[2017-03-06] MEDS: HEPARIN NA (PORCINE) 5,000 UNITS/ML 1ML VIAL SQ SCH (06:03)
[2017-03-06] MEDS: HYDROCORTISONE SOD SUCCINATE 100 MG/2 ML VIAL IVPB SCH (06:04)
[2017-03-06] MEDS ORDERED: LEVOTHYROXINE NA 75 MCG TABLET (FP) PO SCH (07:30)
[2017-03-06 08:02] LABS: BASO % 0.1 % (0-2.0); HEMATOCRIT 34.8 % (32.4-45.2); HEMOGLOBIN 11.3 GM/dL (10.7-15.3); LYMPH % 12.9 % (8-40); MCH 27.9 pg (25.7-33.7); MCHC 32.5 g/dl (32.0-36.0); MEAN CELL VOLUME 85.8 fl (80-96); MEAN PLT VOLUME 8.8 fl (7.5-11.1); MONO % 2.5 % (3.8-10.2); NEUT % 84.5 % (42.8-82.8); PLATELET COUNT 194 K/MM3 (134-434); RBC 4.06 M/mm3 (3.60-5.2); WHITE BLOOD COUNT 7.6 K/mm3 (4.0-10.0)
[2017-03-06 08:34] LABS: ANION GAP 9 (8-16); BLOOD UREA NITROGEN 6 mg/dL (7-18); CHLORIDE 112 mmol/L (98-107); CO2 22 mmol/L (21-32); GLUCOSE,RANDOM 135 mg/dL (74-106); POTASSIUM 3.7 mmol/L (3.5-5.1); SODIUM 143 mmol/L (136-145)
[2017-03-06 08:35] LABS: CREATININE 0.5 mg/dL (0.55-1.02)
--- NOTE | 2017-03-06 09:55 | PN ---
Progress Note (short form) - Note Progress Note: Attending Surgeon POD #1 No c/o; tolerated diet; voided and has been OOB VSS AF abdomen-soft; flat and non tender; port site dressings c/d/i WBC-wnl IMP: doing well PLAN: Advance diet and d/c to office f/u 7-10 days; she should not work until after I see her post op in the office; a/a/u by the patient. Alfonzo Venegas MD FACS
[2017-03-06] MEDS: DESMOPRESSIN ACETATE 0.2 MG TABLET PO SCH (10:00)
[2017-03-06] MEDS ORDERED: predniSONE 5 MG TABLET (UD) PO SCH (10:00)
--- NOTE | 2017-03-06 12:16 | DS ---
Physical Exam: SUBJECTIVE: Pt had episode of diarrhea last night. Continues to tolerate diet with soups last night. No complaints currently. OBJECTIVE: Vital Signs Period Temp Pulse Resp BP Sys/Antoine Pulse Ox Last 24 Hr 97.9 F-98.6 F 83-107 16-20 90-110/54-73 94-100 PHYSICAL EXAM GENERAL: NAD, awake, alert, and fully oriented HEENT: NC/AT, No Jvd, sclera anicteric, EOMI, GATO LUNGS: CTA bilaterally, no wheezes, rales, or rhonchi. no accessory muscle use. HEART: RRR, S1, S2 without murmur ABDOMEN: Soft, slight tenderness, nondistended, normoactive bowel sounds, no guarding, no rebound, no hepatomegaly, incisions C/D/I EXTREMITIES: 2+ pulses, warm, well-perfused, no edema. NEUROLOGICAL: Cranial nerves II through XII grossly intact. Normal speech, gait not observed. PSYCH: Normal mood, normal affect. SKIN: Warm, dry, no rashes noted. LABS Laboratory Results - last 24 hr 03/05/17 03/06/17 03/06/17 17:30 06:00 06:00 WBC 7.6 RBC 4.06 Hgb 11.3 D Hct 34.8 D MCV 85.8 MCH 27.9 MCHC 32.5 RDW 14.0 Plt Count 194 MPV 8.8 Neutrophils % 84.5 H D Lymphocytes % 12.9 D Monocytes % 2.5 L Eosinophils % 0.0 D Basophils % 0.1 Sodium 149 H 143 Potassium 4.6 D 3.7 Chloride 118 H D 112 H Carbon Dioxide 24 22 Anion Gap 7 L 9 BUN 7 D 6 L Creatinine 0.8 0.5 L D Creat Clearance w eGFR > 60 Random Glucose 111 H 135 H D Calcium 8.9 8.0 L Total Bilirubin 0.5 D AST 25 D ALT 42 Alkaline Phosphatase 103 Total Protein 7.3 Albumin 3.2 L Free T4 03/06/17 06:00 WBC RBC Hgb Hct MCV MCH MCHC RDW Plt Count MPV Neutrophils % Lymphocytes % Monocytes % Eosinophils % Basophils % Sodium Potassium Chloride Carbon Dioxide Anion Gap BUN Creatinine Creat Clearance w eGFR Random Glucose Calcium Total Bilirubin AST ALT Alkaline Phosphatase Total Protein Albumin Free T4 0.97 HOSPITAL COURSE: Date of Admission:03/05/17 Date of Discharge: 03/06/17 Pt was admitted on 03/05/17 after presenting to the ED with nonbilious/ nonbloody vomiting, nausea, and RLQ abdominal pain found to have acute appendicits as confirmed by abdominal CT. Endocrinology was consulted for perioperative management due to her pituitary adenoma resection for which she was given a stress dose of steroids for her upcoming procedure. Pt was risk stratified and had laparoscopic appendectomy performed without complication and received appropriate perioperative antibiotics. Post-operatively, pt had resolution of abdominal tenderness with exception of surgical site. She was kept overnight to manage tolerance of diet and pain control. Pt is being discharged currently having BM's, passing gas, tolerating her advanced diet of soups currently. 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 Venegas in his outpatient office. Pt understands the instructions and will make an appointment with Dr. Venegas within 7-10 days. During her hospital course, she was consented for hepatitis panel screening and HIV testing. Those results are currently pending. Abdominal CT: 1. Thickened appendix suspicious for acute appendicitis. No significant periappendiceal inflammation. Clinical correlation and follow-up recommended. 2. Diffuse fatty infiltration of the liver and cholelithiasis. Minutes to complete discharge: 35 Discharge Summary Reason For Visit: ABDOMINAL PAIN Current Active Problems Appendicitis (Acute) Central hypothyroidism (Chronic) Diabetes insipidus (Chronic) Panhypopituitarism (Chronic) Condition: Good - Instructions Diet, Activity, Other Instructions: Follow-ups --Please follow-up with Dr. Venegas in 7-10 days Medications: --None of your medications were changed; please continue your medications as you have been prior to your hospital stay Dr. Venegas Discharge Instructions Dear EWA LENNON, Post Operative Instructions Physical activity Resume your normal everyday activity as tolerated no heavy lifting or exercise until seen by your surgeon. You may walk unlimited amounts of and climb stairs. You may resume driving the car when you feel safe and comfortable behind the wheel. Wound care If you have a bandage, leave it on, and keep dry for 48 - 72 hours. After that time discard the outer bandage. If there are tapes on the skin under the outer bandage, leave them in place. They will peel off in the next 7 to 10 days. Do Not peel them off. You may shower 2 days after surgery. If there are tapes present on the skin, they can get wet. Diet There are no dietary restrictions. Eat healthy, high-fiber foods. Drink 6 to 8 glasses of liquid each day. This will assist in keeping your bowels are regular. Pain management You may take Tylenol or acetaminophen or Ibuprofen (for example, Motrin, Advil etc.) Any pain prescription medication ordered should be taken as prescribed for moderate to severe pain. Call Dr. Venegas for any of the following: Severe pain not relieved by medication Fever of 101 or higher Excessive bleeding or drainage on dressing Inability to urinate Call the office at [phone] for a post operative appointment in 7 - 10 days. Referrals: Alfonzo Venegas MD [Staff Physician] - Disposition: HOME - Home Medications Comprehensive Discharge Medication List: Ambulatory Orders Cholecalciferol (Vitamin D3) [Vitamin D -] 0 unit PO DAILY 03/04/17 Desmopressin Acetate [Desmopressin Acetate -] 0.1 mg PO BID 03/04/17 Levothyroxine [Synthroid -] 0 mcg PO DAILY 03/04/17 Prednisone 5 mg PO DAILY 03/04/17 Acetaminophen [Tylenol .Regular Strength -] 650 mg PO Q6H PRN tablet 03/06/17 Miscellaneous Medical Supply [Outpatient Order] 1 each ASDIR #1 [facility] Miscellaneous Medical Supply [Outpatient Order] 1 each ASDIR #1 [facility] This patient is new to me today: No Emergency Visit: No Critical Care patient: No - Discharge Referral Referred to [facility] Med P.C.: No
--- NOTE | 2017-03-06 12:32 | PN ---
Progress Note (short form) - Note Progress Note: Denies any complaints Feels good Vital Signs Period Temp Pulse Resp BP Sys/Antoine Pulse Ox Last 24 Hr 97.9 F-98.6 F 83-107 16-20 90-110/54-73 94-100 PE: AQx3 Neck: Supple,No JVD HEENT: PERRL, EOMI Lungs: CTA CVS: S1S2 Abd: Benign Ext: No edema Neuro: No focal deficit CMP Sodium 143 mmol/L (136-145) 03/06/17 06:00 Potassium 3.7 mmol/L (3.5-5.1) 03/06/17 06:00 Chloride 112 mmol/L (98-107) H 03/06/17 06:00 Carbon Dioxide 22 mmol/L (21-32) 03/06/17 06:00 Anion Gap 9 (8-16) 03/06/17 06:00 BUN 6 mg/dL (7-18) L 03/06/17 06:00 Creatinine 0.5 mg/dL (0.55-1.02) L D 03/06/17 06:00 Creat Clearance w eGFR > 60 (>60) 03/05/17 17:30 Random Glucose 135 mg/dL (74-106) H D 03/06/17 06:00 Lactic Acid 1.5 mmol/L (0.4-2.0) 03/05/17 03:17 Calcium 8.0 mg/dL (8.5-10.1) L 03/06/17 06:00 Total Bilirubin 0.5 mg/dL (0.2-1.0) D 03/05/17 17:30 AST 25 U/L (15-37) D 03/05/17 17:30 ALT 42 U/L (12-78) 03/05/17 17:30 Alkaline Phosphatase 103 U/L (45-117) 03/05/17 17:30 Total Protein 7.3 g/dl (6.4-8.2) 03/05/17 17:30 Albumin 3.2 g/dl (3.4-5.0) L 03/05/17 17:30 Lipase 110 U/L (73-393) 03/04/17 18:05 TSH 0.01 uIU/ml (0.358-3.74) L 03/05/17 06:24 Free T4 0.97 ng/dl (0.76-1.46) 03/06/17 06:00 Current Medications Generic Name Dose Route Start Last Admin Trade Name Sahil PRN Reason Stop Dose Admin Acetaminophen 650 mg 03/05/17 13:27 03/06/17 07:44 Tylenol - PO 650 mg Q6H PRN Administration FEVER OR PAIN Desmopressin Acetate 0.1 mg 03/05/17 22:00 03/06/17 10:00 Ddavp - PO 0.1 mg BID CHELA Administration Heparin Sodium (Porcine) 5,000 unit 03/05/17 14:00 03/06/17 06:03 Heparin - SQ 5,000 unit TID CHELA Administration Hydrocortisone Sodium Succinate 25 mg 03/05/17 22:00 03/06/17 06:04 Solu-Cortef - IVPB 25 mg TID CHELA Administration Sodium Chloride 1,000 mls @ 75 mls/hr 03/05/17 16:18 03/06/17 02:58 Normal Saline - IV 75 mls/hr ASDIR CHELA Administration Levothyroxine Sodium 75 mcg 03/06/17 07:30 03/06/17 07:42 Synthroid - PO 75 mcg DAILY@0730 CHELA Administration Morphine Sulfate 2 mg 03/05/17 13:57 Morphine Injection - IVPUSH Q4H PRN PAIN Ondansetron HCl 4 mg 03/05/17 13:28 Zofran Injection IVPUSH Q6H PRN NAUSEA AND/OR VOMITING Oxycodone HCl 5 mg 03/05/17 13:25 Roxicodone - PO Q6H PRN PAIN LEVEL 1-5 Oxycodone HCl 10 mg 03/05/17 13:26 03/06/17 07:47 Roxicodone - PO 10 mg Q6H PRN Administration PAIN LEVEL 6-10 Prednisone 5 mg 03/06/17 10:00 03/06/17 09:59 Deltasone - PO 5 mg DAILY CHELA Administration AP: AP: Appendicitis s/p Appendectomy Panhypopituitarism: Diabetes Insipidus Central Hypothyroidism ?Hyperprolactinemia Hyrocortisone 25mg IVPB Q 8 hrs for 24 hrs then switch to Prednisone 5mg Daily LT4 75 mcg QD Cabergoline 0.5mg half tab twice a week Desmopressin 0.1mg BID, First dose stat as she didn't take it since last night. Morning electrolytes WNL FT4 WNL, Prolactin pending Will f/u Problem List - Problems (1) Appendicitis Code(s): K37 - UNSPECIFIED APPENDICITIS Qualifiers: Appendicitis type: acute appendicitis Acute appendicitis type: unspecified acute appendicitis type Qualified Code(s): K35.80 - Unspecified acute appendicitis
--- NOTE | 2017-03-06 13:15 | OP ---
DATE OF OPERATION: 03/05/2017 PREOPERATIVE DIAGNOSIS: Acute appendicitis. POSTOPERATIVE DIAGNOSIS: Acute appendicitis. PROCEDURE: Laparoscopic appendectomy. SURGEON: Alfonzo Venegas MD SUSTAINABILITY PROJECT MANAGER: Shweta Moss PA-C ANESTHESIA: General. OPERATIVE FINDINGS: Acute appendicitis. The rest of the findings were unremarkable. PROCEDURE: The patient was placed on the operating room table in the supine position. After the induction of general anesthesia, the patient's abdomen was prepped with ChloraPrep and draped in sterile fashion. A timeout was taken and pneumoperitoneum established above the umbilicus using a Veress needle to an intraabdominal pressure of 15 mmHg. A 12-mm suprapubic port and a left lower quadrant 5-mm port were placed and laparoscopy carried out and the previously noted findings were observed. The appendix was grasped and the mesoappendix serially divided using the LigaSure device. This was cleared down to the base of the appendix which was identified at the convergence of the tinea of the right colon. Once the base was cleared of its blood supply, a 45-mm Endo-ANGEL stapling device was fired across the base of the appendix. The appendix was then placed in a specimen retrieval bag and brought out through the suprapubic port and pneumoperitoneum reestablished. There was no evidence of bleeding from the appendiceal stump or an area where adhesions had been lysed using blunt dissection and electrocautery. All port sites were then removed under laparoscopic vision without evidence of bleeding from the port sites and the pneumoperitoneum evacuated. All port sites were infiltrated with 0.5% Marcaine and the suprapubic port fascial defect was closed with a 0 Vicryl figure-of-8 suture. All the port site skin edges were reapproximated with 4-0 Monocryl in subcuticular fashion. Steri-Strips and Band-Aid dressings were placed and the procedure terminated at this point and the patient aroused from general anesthesia and transferred to the postanesthesia care unit in stable condition, awake and alert. ESTIMATED BLOOD LOSS: Minimal. DRAINS: None. SPECIMEN: Appendix to Pathology. I, Alfonzo Venegas, was physically present in the operating room from the time the patient was placed on the operating room table until she was transferred to the postanesthesia care unit in [employer] [facility]. MD NELL Davis/[id number] JESÚS
[2017-03-06 13:41] VITALS: BP 133/51; PULSE 73; TEMP 98.5
--- NOTE | 2017-03-06 15:42 | PN ---
Teaching Attending Note Name of Resident: Chuck Diaz ATTENDING PHYSICIAN STATEMENT I saw and evaluated the patient. I reviewed the resident's note and discussed the case with the resident. I agree with the resident's findings and plan as documented. SUBJECTIVE:pain is controlled. denies CP, SOB, fever, chills, N/V/C/D. +Bm this AM OBJECTIVE: Last Vital Signs Temp Pulse Resp BP Pulse Ox 98.5 F 73 17 133/51 98 03/06/17 10:00 03/06/17 10:00 03/06/17 10:00 03/06/17 10:03/06/17 09:00 General NAD Abdomen soft slightly distended/tender. surgical incisions with good approximation and dry. no oozing. ASSESSMENT AND PLAN: 51yo M with PMH Panhypopituitarism presented to the ER with abdominal pain and vomiting 1. Acute appendicitis- s/p laprascopic appendectomy 03/05. pain controlled. surgery on board 2. Panhypopituitarism- placed on stress steroids by endocrine. on hydrocortisone. on desmopressin and cabergoline and LT4. endocrine following 3. d/c home
--- NOTE | 2017-03-06 20:00 | PN ---
Progress Note, Physician Chief Complaint: Pt pain controlled, no GA complaints. - Objective Vital Signs: Vital Signs Temperature 98.5 F 03/06/17 10:00 Pulse Rate 73 03/06/17 10:00 Respiratory Rate 03/06/17 10:00 Blood Pressure 133/51 03/06/17 10:00 O2 Sat by Pulse Oximetry (%) 98 03/06/17 09:00 Constitutional: Yes: Well Nourished, No Distress, Calm Musculoskeletal: Yes: WNL Neurological: Yes: WNL, Alert, Oriented Labs: CBC, BMP 03/06/17 06:00 03/06/17 06:00 INR, PTT INR Cancelled 03/05/17 03:17 Assessment/Plan POD#1 s/p lap appy under GA. Doing well. D/C from anesthesia care.
[2017-03-07 14:14] LABS: HBSAG SCREEN Negative (Negative); HEP A AB, IGM Negative (Negative); HEP B CORE AB, TOT Negative (Negative)
--- NOTE | 2017-03-10 11:40 | PATH ---
Surgical Pathology Report Patient Name: EWA SCHWARTZ [facility]. Rec. #: [id number] /Age/Gender: 1965 (Age: 51) / F Account: <[id number]> Location: EMERGENCY ROOM Taken: 03/05/2017 Received: 03/05/2017 Reported: 03/10/2017 Physicians: MD Pili Tyler M.D. Specimen(s) Received APPENDIX Clinical History Abdominal pain, appendicitis Final Diagnosis APPENDIX, LAPAROSCOPIC APPENDECTOMY: FOCAL ACUTE APPENDICITIS. Electronically Signed Alondra Salcedo M.D. Gross Description Received in formalin, labeled "appendix," is a 5.7 cm. in length vermiform appendix with a stapled margin of resection and moderate attached fat. The serosa is zamarripa-red and smooth. Sectioning reveals mucin within the lumen. The wall of the appendix averages 0.2 cm. in thickness. The specimen is entirely submitted as follows: 1- associate financial representative sections; 2-margin of resection; 8-5-ojleqtnhe of specimen. 03/05/201703/05/2017
== END 2017-03-06 12:59 | disposition home or self-care (01) ==
LOC: JER 17:28 → JERBED 03-05 00:40 → UNDOADMIN 03-05 00:40 → J8W 03-05 07:46 → JERBED 03-05 07:46 → SUATTDRO 03-05 13:34 → JASUSAT 03-05 13:34 → J8W 03-05 15:00 → JASUSAT 03-06 12:59
PROVIDERS: ATTEND Internal Medicine
PROC: 0DTJ4ZZ Resection of Appendix, Percutaneous Endoscopic Approach (ICD-10-PCS; principal; 2017-03-05 08:00)
DX: K35.80 Unspecified acute appendicitis (principal)
CPT/HCPCS: 36415; 74177-TC; 80048; 80053; 81003; 81015; 83605; 83690; 84146; 84439; 84443; 85025; 86704; 86706; 86708; 86803; 86850; 86900; 86901; 87340; 88304-TC; 93005; 93010; 94760; 99282-25; 99283-25; J1644